=== PATIENT | male | born 1970 | race Caucasian/White ===

== ENCOUNTER 2021-06-04 09:29 | Inpatient (IN) | payer MEDICAID ==
[~2021-06-04] VITALS: Ht 172.7 cm; Wt 100.0 kg
[2021-06-04] MEDS ORDERED: dexamethasone sod phosphate 10mg/ml inj PO STA (11:24)
[2021-06-04 12:55] LABS: BASOPHILS % (AUTO) 0.2 % (0-1); EOSINOPHILS % (AUTO) 0 % (0-6); HEMATOCRIT 48.5 % (42.0-52.0); HEMOGLOBIN 16.1 g/dl (14.0-17.9); LYMPHOCYTES # (AUTO) 0.9 X10'3 (1.1-4.8); LYMPHOCYTES % (AUTO) 7.4 % (21-51); MEAN CORPUSCULAR HEMOGLOBIN 29.4 PG (27.0-31.0); MEAN CORPUSCULAR HGB CONC 33.2 g/dL (33.0-36.5); MEAN CORPUSCULAR VOLUME 88.5 FL (78-98); MEAN PLATELET VOLUME 8.9 FL (7.4-10.4); MONOCYTES # (AUTO) 1.6 X10'3 (0-0.9); MONOCYTES % (AUTO) 13.1 % (2-12); NEUTROPHILS # (AUTO) 9.5 X10'3 (1.8-7.7); NEUTROPHILS % (AUTO) 79.3 % (42-75); PLATELET COUNT 202 X10'3 (140-440); RED BLOOD COUNT 5.48 X10'6 (4.70-6.10); RED CELL DISTRIBUTION WIDTH 14.3 % (11.5-14.5)
[2021-06-04 12:59] LABS: ALBUMIN 2.6 G/DL (3.4-5.0); ANION GAP 15 (8-16); BLOOD UREA NITROGEN 25 MG/DL (7-18); CALCIUM 8.3 MG/DL (8.5-10.1); CHLORIDE 102 MMOL/L (99-107); CREATININE 1.67 MG/DL (0.60-1.10); GLUCOSE 122 MG/DL (70-104); POTASSIUM 4.1 MMOL/L (3.5-5.1); SODIUM 138 MMOL/L (135-145); TOTAL CARBON DIOXIDE 21.2 MMOL/L (24-32); eGFR 44 ML/MIN
[2021-06-04 13:23] LABS: TOTAL CELLS COUNTED 100
[2021-06-04 13:24] LABS: PLATELET ESTIMATE NORMAL
[2021-06-04] MEDS ORDERED: CASIRIVIMAB/IMDEVIMAB inject. 10 ML in normal saline 100ml IV soln 100 ML IV ONE (13:30)
[2021-06-04] MEDS ORDERED: potassium Cl 20 mEq SR tablet PO PRN ×2 (14:30)
[2021-06-04] MEDS ORDERED: mag hydrox/Alum hydrox/simeth 30ml oral suspension PO PRN (14:30)
[2021-06-04] MEDS ORDERED: ondansetron/PF 4mg/2ml inj IV PRN (14:30)
[2021-06-04] MEDS ORDERED: potassium Cl 40MEQ/1/2NS 520ml 520 ML IV PRN ×2 (14:30)
[2021-06-04] MEDS ORDERED: acetaminophen 325mg tablet PO PRN (14:30)
[2021-06-04] MEDS ORDERED: magnesium hydroxide 30ml (MOM) UD suspension PO PRN (14:30)
[2021-06-04] MEDS ORDERED: glucagon, human recombinant 1mg kit SUBCUT PRN (14:35)
[2021-06-04] MEDS ORDERED: dextrose ORAL solution 15 GM/59 ML bottle PO PRN ×2 (14:35)
[2021-06-04] MEDS ORDERED: MESSAGE TO PHARMACY PO ONE (14:35)
[2021-06-04] MEDS ORDERED: insulin Lispro (HumaLOG) vial - multi-dose SQ SCH (14:35)
[2021-06-04] MEDS ORDERED: dextrose 50%-water 50ml dispensing syringe IV PRN ×2 (14:35)
--- NOTE | 2021-06-04 15:31 | NUR ---
pt 02 sats 91% on 4l/min nc. rr 28, hr 99. informed dr. frank. new orders: place on high flow nc, titrate as needed.
[2021-06-04] MEDS ORDERED: NO HOME MEDS (15:54)
--- NOTE | 2021-06-04 16:15 | NUR ---
RT PLACING PT ON HIGH FLOW ON 15L. PT STATES, ' I CAN BREATHE BETTER ITS HELPING"
[2021-06-04] MEDS: K and/or MAG REPLACEMENT MC SCH (19:58)
[2021-06-04] MEDS: dexamethasone 4mg/ml inj IV SCH (20:08)
[2021-06-04] MEDS: heparin, porcine 5000 units/ml vial SQ SCH (20:08)
[2021-06-04] MEDS: docusate sod 100mg capsule PO SCH (20:08)
--- NOTE | 2021-06-04 20:29 | NUR ---
[facility] [phone]
[2021-06-05] MEDS: dexamethasone 4mg/ml inj IV SCH ×4 (02:43→19:36)
[2021-06-05 04:06] LABS: BASOPHILS % (AUTO) 0.1 % (0-1); EOSINOPHILS % (AUTO) 0 % (0-6); HEMATOCRIT 49.7 % (42.0-52.0); HEMOGLOBIN 16.2 g/dl (14.0-17.9); LYMPHOCYTES # (AUTO) 0.8 X10'3 (1.1-4.8); LYMPHOCYTES % (AUTO) 5.8 % (21-51); MEAN CORPUSCULAR HEMOGLOBIN 29.1 PG (27.0-31.0); MEAN CORPUSCULAR HGB CONC 32.6 g/dL (33.0-36.5); MEAN CORPUSCULAR VOLUME 89.2 FL (78-98); MEAN PLATELET VOLUME 8.9 FL (7.4-10.4); MONOCYTES # (AUTO) 1.9 X10'3 (0-0.9); MONOCYTES % (AUTO) 13.2 % (2-12); NEUTROPHILS # (AUTO) 11.4 X10'3 (1.8-7.7); NEUTROPHILS % (AUTO) 80.9 % (42-75); PLATELET COUNT 250 X10'3 (140-440); RED BLOOD COUNT 5.57 X10'6 (4.70-6.10); RED CELL DISTRIBUTION WIDTH 14.4 % (11.5-14.5); WHITE BLOOD COUNT 14.1 X10'3 (4.5-11.0)
[2021-06-05 04:57] LABS: ALANINE AMINOTRANSFERASE 107 U/L (12-78); ALBUMIN 2.5 G/DL (3.4-5.0); ALBUMIN/GLOBULIN RATIO 0.5 (1.1-1.5); ALKALINE PHOSPHATASE 101 IU/L (46-116); ANION GAP 12 (8-16); ASPARTATE AMINO TRANSFERASE 160 U/L (10-37); BILIRUBIN,TOTAL 0.4 MG/DL (0.1-1.0); BLOOD UREA NITROGEN 35 MG/DL (7-18); BUN/CREATININE RATIO 18.1 (5.4-32.0); CALCIUM 7.8 MG/DL (8.5-10.1); CHLORIDE 104 MMOL/L (99-107); CREATININE 1.93 MG/DL (0.60-1.10); GLUCOSE 136 MG/DL (70-104); POTASSIUM 4.6 MMOL/L (3.5-5.1); SODIUM 143 MMOL/L (135-145); TOTAL PROTEIN 7.6 G/DL (6.4-8.2); eGFR 37 ML/MIN
[2021-06-05 05:16] LABS: PLATELET ESTIMATE NORMAL; TOTAL CELLS COUNTED 100
[2021-06-05 05:17] LABS: TOXIC GRANULATION 1+
[2021-06-05] MEDS: K and/or MAG REPLACEMENT MC SCH ×2 (08:00→19:36)
--- NOTE | 2021-06-05 08:27 | NUR ---
PAGER ID: [phone] MESSAGE: [id number] Rosemarie guerrero pt coming to 4018, tele with pulse ox? [id number] ENMANUEL
[2021-06-05] MEDS: docusate sod 100mg capsule PO SCH ×2 (08:29→19:36)
[2021-06-05] MEDS: heparin, porcine 5000 units/ml vial SQ SCH (08:29)
[2021-06-05 09:30] VITALS: BP 144/81
--- NOTE | 2021-06-05 11:09 | NUR ---
[facility]AN PTS MOTHER- [phone]
[2021-06-05] MEDS ORDERED: REMDESIVIR INJ 200 MG in normal saline 100ml IV soln 60 ML IV ONE (13:30)
[2021-06-05 13:43] LABS: D-DIMER 0.72 MG/L FEU (0-0.50)
--- NOTE | 2021-06-05 15:52 | NUR ---
PAGER ID: [phone] MESSAGE: [id number] Rosemarie chest pain, rate upper 160's, getting EKG [id number] ENMANUEL
[2021-06-05] MEDS ORDERED: diltiazem 5mg/ml 5ml inj. IV STA (16:06)
[2021-06-05 16:24] VITALS: BP 118/102
[2021-06-05] MEDS: enoxaparin 100mg/ml syringe SUBCUT SCH (16:24)
[2021-06-05 16:32] VITALS: BP 111/57
[2021-06-05 18:15] VITALS: BP 134/72
[2021-06-05 21:58] VITALS: BP 144/81
[2021-06-06 02:00] VITALS: BP 116/68
[2021-06-06] MEDS: dexamethasone 4mg/ml inj IV SCH ×2 (02:21→07:38)
[2021-06-06 06:00] VITALS: BP 123/92
[2021-06-06 06:24] LABS: D-DIMER 0.36 MG/L FEU (0-0.50)
[2021-06-06 06:30] LABS: ALANINE AMINOTRANSFERASE 100 U/L (12-78); ALBUMIN 2.2 G/DL (3.4-5.0); ALBUMIN/GLOBULIN RATIO 0.5 (1.1-1.5); ALKALINE PHOSPHATASE 87 IU/L (46-116); ANION GAP 10 (8-16); ASPARTATE AMINO TRANSFERASE 113 U/L (10-37); BILIRUBIN,TOTAL 0.3 MG/DL (0.1-1.0); BLOOD UREA NITROGEN 52 MG/DL (7-18); BUN/CREATININE RATIO 33.5 (5.4-32.0); C-REACTIVE PROTEIN 6.51 MG/DL (0.0-0.5); CALCIUM 8.1 MG/DL (8.5-10.1); CHLORIDE 105 MMOL/L (99-107); CREATININE 1.55 MG/DL (0.60-1.10); GLUCOSE 157 MG/DL (70-104); POTASSIUM 4.2 MMOL/L (3.5-5.1); SODIUM 140 MMOL/L (135-145); TOTAL PROTEIN 6.7 G/DL (6.4-8.2); eGFR 48 ML/MIN
[2021-06-06 06:33] LABS: BASOPHILS % (AUTO) 0.1 % (0-1); EOSINOPHILS % (AUTO) 0 % (0-6); HEMATOCRIT 48.1 % (42.0-52.0); HEMOGLOBIN 15.7 g/dl (14.0-17.9); LYMPHOCYTES # (AUTO) 1.3 X10'3 (1.1-4.8); LYMPHOCYTES % (AUTO) 5.9 % (21-51); MEAN CORPUSCULAR HEMOGLOBIN 28.8 PG (27.0-31.0); MEAN CORPUSCULAR HGB CONC 32.5 g/dL (33.0-36.5); MEAN CORPUSCULAR VOLUME 88.4 FL (78-98); MEAN PLATELET VOLUME 8.8 FL (7.4-10.4); MONOCYTES # (AUTO) 3.1 X10'3 (0-0.9); MONOCYTES % (AUTO) 14.5 % (2-12); NEUTROPHILS # (AUTO) 17.1 X10'3 (1.8-7.7); NEUTROPHILS % (AUTO) 79.5 % (42-75); PLATELET COUNT 326 X10'3 (140-440); RED BLOOD COUNT 5.44 X10'6 (4.70-6.10); RED CELL DISTRIBUTION WIDTH 14.2 % (11.5-14.5); WHITE BLOOD COUNT 21.5 X10'3 (4.5-11.0)
--- NOTE | 2021-06-06 06:58 | NUR ---
Patient in room [facility] 4018. I have received report from KATINA HERNÁNDEZ and had the opportunity to ask questions and assume patient care.
[2021-06-06] MEDS: enoxaparin 100mg/ml syringe SUBCUT SCH ×2 (07:37→21:50)
[2021-06-06] MEDS: docusate sod 100mg capsule PO SCH ×2 (07:38→21:50)
[2021-06-06 07:55] LABS: PLATELET ESTIMATE NORMAL; TOTAL CELLS COUNTED 100
[2021-06-06] MEDS ORDERED: REMDESIVIR INJ 100 MG in normal saline 100ml IV soln 80 ML IV SCH (08:00)
[2021-06-06] MEDS: K and/or MAG REPLACEMENT MC SCH ×2 (08:00→20:00)
[2021-06-06 10:00] VITALS: BP 117/77
[2021-06-06 14:00] VITALS: BP 157/85
[2021-06-06] MEDS ORDERED: iohexol 350MG/ML 100ml bottle IV ONE (14:54)
[2021-06-06 18:00] VITALS: BP 159/74
--- NOTE | 2021-06-06 18:51 | NUR ---
Problems reprioritized. Patient report given, questions answered & plan of care reviewed with KATINA HERNANDEZ.
[2021-06-06] MEDS ORDERED: dexamethasone 4mg/ml inj IV SCH (20:00)
[2021-06-06 22:00] VITALS: BP 116/69
--- NOTE | 2021-06-07 01:37 | NUR ---
Pt left AMA. Said he was tired of being here and just wanted to go home. Advised against this and told him of risks of leaving. Pt O2 sat down to 80% when off hi-flow NC and non-rebreather mask. Paged Dr Baca and talked to nursing venkat Edwards, both aware of situation. Pt signed AMA form. Gave pt N95 mask to wear as he is Covid +. Said his friend was downstairs to pick him up.
== END 2021-06-07 01:20 | disposition left against medical advice (07) | DRG 137 ==
LOC: ER 09:30 → ED HOLD 14:33 → EDBEDREQ 06-05 07:00 → ORTHO 4S 06-05 08:45
PROVIDERS: ADMIT Internal Medicine; ATTEND Family Medicine
PROC: XW033E5 Introduction of Remdesivir Anti-infective into Peripheral Vein, Percutaneous Approach, New Technology Group 5 (ICD-10-PCS; principal; 2021-06-05)
PROC: 5A0945A Assistance with Respiratory Ventilation, 24-96 Consecutive Hours, High Flow/Velocity Cannula (ICD-10-PCS; 2021-06-05)
PROC: B32T1ZZ Computerized Tomography (CT Scan) of Left Pulmonary Artery using Low Osmolar Contrast (ICD-10-PCS; 2021-06-06)
PROC: B3201ZZ Computerized Tomography (CT Scan) of Thoracic Aorta using Low Osmolar Contrast (ICD-10-PCS; 2021-06-06)
PROC: B32S1ZZ Computerized Tomography (CT Scan) of Right Pulmonary Artery using Low Osmolar Contrast (ICD-10-PCS; 2021-06-06)
DX: U07.1 COVID-19 (principal); J96.01 Acute respiratory failure with hypoxia; J12.82 Pneumonia due to coronavirus disease 2019; Z53.29 Procedure and treatment not carried out because of patient's decision for other reasons; N18.9 Chronic kidney disease, unspecified; E66.01 Morbid (severe) obesity due to excess calories; Z68.33 Body mass index [BMI] 33.0-33.9, adult; Z88.1 Allergy status to other antibiotic agents; Z88.0 Allergy status to penicillin
CPT/HCPCS: 36415; 71045; 71275; 80048; 80053; 82948; 83036; 85007; 85025; 85379; 86140; 93005; 94760; 96365; 99291; G0378; J1100; J1644; J1650; J1815; J3490; Q0244; Q9967